=== PATIENT | female | born 1985 | race Caucasian/White ===

== ENCOUNTER 2016-04-11 14:46 | Emergency (ER) | payer BC ==
--- NOTE | 2016-04-11 15:45 | EDPHY ---
H & P Time Seen by Provider: 04/11/16 15:35 HPI/ROS: Chief complaint. Abdominal pain HPI. 31-year-old female had 1 episode of sharp mid abdominal pain this morning. She then felt a small tender nodule or ball at the umbilicus. She pushed on it with her finger and it expressed some small amount of pus and blood. No fever no abdominal pain now. No nausea vomiting or diarrhea. She has been constipated the last several days but did have bowel movement this morning after taking medication. She has not had previous umbilical piercing is. She has had a previous episode of similar drainage from the umbilicus about 1 month ago ROS Constitutional. no fever/chills, no weakness Eyes. no problems with vision ENT. no sore throat, no nasal drainage Cardiovascular. no chest pain Respiratory. no shortness of breath, no cough Abdominal. Abdominal pain without nausea vomiting or diarrhea. Small amount of purulence and blood discharge from a nodule in the umbilicus . no problems urinating MS. no calf pain/swelling, no neck/back pain, no joint pain Skin. no rash Lymph. no swollen glands Neuro. no headache, no dizziness, no difficulty walking or with speech Past Medical/Surgical History: Rectal cyst with surgery Social History: Single nonsmoker no alcohol Smoking Status: Never smoked Physical Exam: General Appearance: Alert well-developed female mild distress vitals are stable. Eyes: Pupils equal and round no pallor or injection. ENT, Mouth: Mucous membranes are moist. Respiratory: There are no retractions, lungs are clear to auscultation. Cardiovascular: Regular rate and rhythm. Gastrointestinal: Abdomen is soft and generally nontender. No masses or organomegaly. There is some erythema to the superior aspect of the inside of the umbilicus but no continuing drainage. Patient notes it is slightly tender Neurological: Awake and alert, sensory and motor exams grossly normal. Skin: Warm and dry, no rashes. Musculoskeletal: Neck is supple nontender. Extremities symmetrical, full range of motion. Psychiatric: Patient is oriented X 3, there is no agitation. Constitutional: Initial Vital Signs Temperature (C) 36.4 C 04/11/16 14:50 Heart Rate 100 04/11/16 14:50 Respiratory Rate 16 04/11/16 14:50 Blood Pressure 155/96 H 04/11/16 14:50 O2 Sat (%) 97 04/11/16 14:50 O2 Delivery Mode Room Air Allergies/Adverse Reactions: No Known Allergies Allergy (Unverified 04/11/16 14:49) Home Medications: Medication Instructions Recorded Cephalexin [Keflex (*)] 500 mg PO TID #21 cap 04/11/16 Sulfamethox/Tmp 800/160 mg 1 tab PO BID #14 tab 04/11/16 [Bactrim Ds] Medical Decision Making - Diagnostics Imaging: Upright abdomen shows no free air or air-fluid levels Procedures: IV normal saline ED Course/Re-evaluation: Re-evaluation patient is stable. She and I discussed imaging lab results, treatment plan including criteria for return importance of follow-up and further evaluation. She expresses understanding and agreement Differential Diagnosis: This appears to have been an abscess in the periumbilical skin. It is now drained. There is residual erythema in the umbilicus but no diffuse swelling or redness. This apparently is recurrent and she had about a month ago. She does not look ill. We will treat her with antibiotics and follow-up. - Data Points Laboratory Results: Laboratory Results 04/11/16 16:00 04/11/16 16:00 04/11/16 04/11/16 16:00 16:00 WBC 12.22 10^3/uL H 10^3/uL (3.80-9.50) RBC 4.75 10^6/uL 10^6/uL (4.18-5.33) Hgb 14.8 g/dL g/dL (12.6-16.3) Hct 45.3 % % (38.0-47.0) MCV 95.4 fL fL (81.5-99.8) MCH 31.2 pg pg (27.9-34.1) MCHC 32.7 g/dL g/dL (32.4-36.7) RDW 13.2 % % (11.5-15.2) Plt Count 207 10^3/uL 10^3/uL (150-400) MPV 11.8 fL H fL (8.7-11.7) Neut % (Auto) 72.5 % % (39.3-74.2) Lymph % (Auto) 20.0 % % (15.0-45.0) Howard % (Auto) 6.4 % % (4.5-13.0) Eos % (Auto) 0.7 % % (0.6-7.6) Baso % (Auto) 0.2 % L % (0.3-1.7) Nucleat RBC Rel Count 0.0 % % (0.0-0.2) Absolute Neuts (auto) 8.86 10^3/uL H 10^3/uL (1.70-6.50) Absolute Lymphs (auto) 2.44 10^3/uL 10^3/uL (1.00-3.00) Absolute Monos (auto) 0.78 10^3/uL 10^3/uL (0.30-0.80) Absolute Eos (auto) 0.08 10^3/uL 10^3/uL (0.03-0.40) Absolute Basos (auto) 0.03 10^3/uL 10^3/uL (0.02-0.10) Absolute Nucleated RBC 0.00 10^3/uL 10^3/uL (0-0.01) Immature Gran % 0.2 % % (0.0-1.1) Immature Gran # 0.03 10^3/uL 10^3/uL (0.00-0.10) Sodium 141 mEq/L mEq/L (134-144) Potassium 3.6 mEq/L mEq/L (3.5-5.2) Chloride 106 mEq/L mEq/L (97-110) Carbon Dioxide 25 mEq/l mEq/l (22-31) Anion Gap 10 mEq/L mEq/L (8-16) BUN 11 mg/dL mg/dL (7-23) Creatinine 0.8 mg/dL mg/dL (0.6-1.0) Estimated GFR > 60 Glucose 84 mg/dL mg/dL (70-100) Calcium 9.9 mg/dL mg/dL (8.5-10.4) Departure - Departure Disposition: Home, Routine, Self-Care Clinical Impression: Cellulitis of periumbilical region Condition: Good Instructions: Cellulitis (ED) Additional Instructions: Warm compresses to sore area of abdomen 2-3 times daily. Cephalexin and Bactrim as antibiotics. Return for worsening symptoms. Recheck in 3-4 days for continuing symptoms Referrals: NONE *PRIMARY CARE P,. [Primary Care Provider] - As per Instructions Scar Gil MD [Medical Doctor] - 2-3 days, if not improved Prescriptions: Cephalexin [Keflex (*)] 500 mg PO TID #21 cap Sulfamethox/Tmp 800/160 mg [Bactrim Ds] 1 tab PO BID #14 tab
[2016-04-11 16:17] LABS: % IMMATURE GRANULYOCYTES 0.2 % (0.0-1.1); ABSOLUTE IMMATURE GRANULOCYTES 0.03 10^3/uL (0.00-0.10); ADD DIFF? NO; ADD MORPH? NO; ADD SCAN? NO; ATYPICAL LYMPHOCYTE FLAG 10 (0-99); FRAGMENT RBC FLAG 0 (0-99); HEMATOCRIT 45.3 % (38.0-47.0); HEMOGLOBIN 14.8 g/dL (12.6-16.3); LEFT SHIFT FLG 0 (0-99); LIPEMIA HEMOLYSIS FLAG 80 (0-99); MEAN CELL HEMOGLOBIN 31.2 pg (27.9-34.1); MEAN CELL HEMOGLOBIN CONCENTR. 32.7 g/dL (32.4-36.7); MEAN CELL VOLUME 95.4 fL (81.5-99.8); MEAN PLATELET VOLUME 11.8 fL (8.7-11.7); PLATELET CLUMPS FLAG 10 (0-99); PLATELET COUNT 207 10^3/uL (150-400); RED BLOOD CELL COUNT 4.75 10^6/uL (4.18-5.33); RED CELL DISTRIBUTION WIDTH 13.2 % (11.5-15.2)
[2016-04-11 16:29] LABS: ANION GAP 10 mEq/L (8-16); CALCIUM 9.9 mg/dL (8.5-10.4); CARBON DIOXIDE 25 mEq/l (22-31); CHLORIDE 106 mEq/L (97-110); CREATININE 0.8 mg/dL (0.6-1.0); GLOMERULAR FILTRATION RATE > 60; GLUCOSE 84 mg/dL (70-100); POTASSIUM 3.6 mEq/L (3.5-5.2); SODIUM 141 mEq/L (134-144)
[2016-04-11 20:12] VITALS: BP 118/72; PULSE 73; RESP 16; TEMP 98.1; O2SAT 97
== END 2016-04-11 20:10 | disposition home or self-care (01) ==
DX: L03.311 Cellulitis of abdominal wall (principal)